=== PATIENT | female | born 1990 | race Caucasian/White ===

== ENCOUNTER 2022-09-19 09:26 | Emergency (ER) | payer BC ==
[2022-09-19 11:24] LABS: CARBON DIOXIDE,CO2 26.3 mmol/L (21.0-32.0)
== END 2022-09-19 13:51 | disposition home or self-care (01) ==
LOC: MW.ED 09:26
DX: O20.0 Threatened abortion (principal); Z86.16 Personal history of COVID-19; Z3A.01 Less than 8 weeks gestation of pregnancy
CPT/HCPCS: 36415; 76817; 76817-26; 80053; 81001; 84702; 85025; 86900; 86901; 99284

== ENCOUNTER 2023-10-01 14:28 | Emergency (ER) | payer BC ==
[2023-10-01 14:54] LABS: BASOPHILS ABSOLUTE AUTO 0.04 K/uL (0.00-0.20); BASOPHILS PERCENT AUTO 0.4 % (0.0-1.0); EOSINOPHILS ABSOLUTE AUTO 0.03 K/uL (0.00-0.45); EOSINOPHILS PERCENT AUTO 0.3 % (0.0-6.0); HEMATOCRIT 40.3 % (37.0-47.0); HEMOGLOBIN 14.1 g/dL (12.0-16.0); IMMATURE GRAN ABSOLUTE AUTO 0.02 K/uL (0.00-0.05); IMMATURE GRAN PERCENT AUTO 0.2 % (0.0-0.4); LYMPHOCYTES ABSOLUTE AUTO 2.16 K/uL (1.00-4.80); LYMPHOCYTES PERCENT AUTO 21.8 % (24.0-44.0); MEAN CORPUSCULAR HEMOGLOBIN 30.7 pg (28.0-32.0); MEAN CORPUSCULAR VOLUME 87.8 fL (83.0-99.0); MEAN PLATELET VOLUME 10.7 fL (9.4-12.3); MONOCYTES ABSOLUTE AUTO 0.72 K/uL (0.00-0.80); MONOCYTES PERCENT AUTO 7.3 % (0.0-8.0); NEUTROPHILS ABSOLUTE AUTO 6.93 K/uL (1.80-7.70); PLATELET COUNT,PLT 282 K/uL (150-400); RED BLOOD CELL COUNT 4.59 M/uL (4.10-5.30)
[2023-10-01 15:08] LABS: APPEARANCE,URINE CLEAR; BILIRUBIN,URINE NEGATIVE (NEGATIVE); COLOR,URINE YELLOW; GLUCOSE,URINE NEGATIVE (NEGATIVE); KETONES,URINE NEGATIVE (NEGATIVE); LEUKOCYTE ESTERASE,URINE NEGATIVE (NEGATIVE); NITRITE,URINE NEGATIVE (NEGATIVE); OCCULT BLOOD,URINE SMALL (NEGATIVE); PROTEIN,URINE NEGATIVE (NEGATIVE); UROBILINOGEN,URINE 0.2 EU/dL (<2.0)
[2023-10-01 15:24] LABS: BACTERIA,URINE FEW (NEGATIVE); EPITHELIAL CELLS,URINE FEW (NONE-FEW); MUCUS,URINE RARE (NONE-MOD); RBC,URINE 0-1 (0-2/HPF); WBC,URINE 0-2 (0-5/HPF)
[2023-10-01 15:51] LABS: A/G RATIO 0.8 (0.9-1.6); ALBUMIN 3.6 g/dL (3.4-5.0); BILIRUBIN TOTAL 0.2 mg/dL (0.2-1.0); CALCIUM 10.1 mg/dL (8.5-10.1); CARBON DIOXIDE,CO2 22.7 mmol/L (21.0-32.0); CREATININE 0.7 mg/dL (0.6-1.0); EST CRCL DRUG DOSING (CG) 94.56 mL/min; POTASSIUM,K 3.9 mmol/L (3.5-5.1)
== END 2023-10-01 17:01 | disposition home or self-care (01) ==
LOC: MW.ED 14:28
DX: O20.0 Threatened abortion (principal); Z86.16 Personal history of COVID-19; Z3A.08 8 weeks gestation of pregnancy
CPT/HCPCS: 36415; 76801; 76801-26; 80053; 81001; 84702; 85025; 99283; 99284

== ENCOUNTER 2024-04-12 09:53 | Inpatient (IN) | payer BC ==
[2024-04-12 10:27] LABS: APPEARANCE,URINE CLEAR; BILIRUBIN,URINE NEGATIVE (NEGATIVE); COLOR,URINE YELLOW; GLUCOSE,URINE NEGATIVE (NEGATIVE); KETONES,URINE NEGATIVE (NEGATIVE); LEUKOCYTE ESTERASE,URINE NEGATIVE (NEGATIVE); NITRITE,URINE NEGATIVE (NEGATIVE); OCCULT BLOOD,URINE TRACE-INTACT (NEGATIVE); PROTEIN,URINE NEGATIVE (NEGATIVE); UROBILINOGEN,URINE 0.2 EU/dL (<2.0)
[2024-04-12] MEDS ORDERED: Misoprostol 200 MCG Tab PO PRN (11:26)
[2024-04-12] MEDS ORDERED: Methylergonovine 0.2 MG/1 ML Amp IM PRN (11:26)
[2024-04-12] MEDS ORDERED: Calcium Gluconate 10% 1 GM/10 ML SDV IV PRN (11:26)
[2024-04-12] MEDS ORDERED: Tranexamic Acid IN NACL,ISO-OS 1,000 MG in Premix Bag 1 BAG IV PRN (11:26)
[2024-04-12] MEDS ORDERED: Lidocaine 1% 50 ML MDV INJECT PRN (11:26)
[2024-04-12] MEDS ORDERED: Sodium Chloride 0.9% 10 ML Syringe FLUSH PRN (11:26)
[2024-04-12] MEDS ORDERED: Butorphanol 2 MG/ML SDV IVPUSH PRN (11:26)
[2024-04-12] MEDS ORDERED: Sodium Chloride 0.9% 2.5 ML Syringe FLUSH PRN (11:26)
[2024-04-12] MEDS ORDERED: Water For Irrigation,Sterile 1,000 ML Container IRR PRN (11:26)
[2024-04-12] MEDS ORDERED: Carboprost Tromethamine 250 MCG/1 mL Vial IM PRN (11:26)
[2024-04-12] MEDS ORDERED: Ondansetron 4 MG/2 ML SDV IVPUSH PRN (11:26)
[2024-04-12] MEDS ORDERED: Sodium Chloride 0.9% 20 ML SDV IV PRN (11:26)
[2024-04-12] MEDS ORDERED: Terbutaline 1 MG/ML SDV SUBCUT PRN (11:26)
[2024-04-12] MEDS ORDERED: Oxytocin/0.9 % Sodium Chloride 30 UNIT/500 ML BAG IV SCH (11:30)
[2024-04-12 11:36] LABS: HEMATOCRIT 42.4 % (37.0-47.0); HEMOGLOBIN 14.6 g/dL (12.0-16.0); MEAN CORPUSCULAR HEMOGLOBIN 30.7 pg (28.0-32.0); MEAN CORPUSCULAR HGB CONC 34.4 g/dL (32.0-36.0); MEAN CORPUSCULAR VOLUME 89.1 fL (83.0-99.0); MEAN PLATELET VOLUME 11.1 fL (9.4-12.3); PLATELET COUNT,PLT 248 K/uL (150-400); RED BLOOD CELL COUNT 4.76 M/uL (4.10-5.30); WHITE BLOOD CELL COUNT,WBC 8.86 K/uL (3.9-11.3)
[2024-04-12] MEDS: NIFEdipine 30 MG Tab.ER PO ONE (11:48)
[2024-04-12 11:59] LABS: A/G RATIO 0.5 (0.9-1.6); ALBUMIN 2.3 g/dL (3.4-5.0); BILIRUBIN TOTAL 0.2 mg/dL (0.2-1.0); CALCIUM 10.2 mg/dL (8.5-10.1); CARBON DIOXIDE,CO2 20.1 mmol/L (21.0-32.0); CREATININE 0.6 mg/dL (0.6-1.0); EST CRCL DRUG DOSING (CG) 110.32 mL/min; POTASSIUM,K 3.8 mmol/L (3.5-5.1); URIC ACID 7.7 mg/dL (2.6-7.2)
[2024-04-12] MEDS: Lactated Ringers 1,000 ML IV SCH (12:31)
[2024-04-12] MEDS: Magnesium Sulfate/Water 4 GM in Premix Bag 1 BAG IV ONE (12:34)
[2024-04-12] MEDS: Magnesium Sulfate/Water 20 GM/500 ML BAG IV SCH (13:03)
[2024-04-12] MEDS: Misoprostol 25 MCG (1/4 of 100 MCG) Tab VAG PRN (13:24)
[2024-04-13] MEDS: Oxytocin/0.9 % Sodium Chloride 30 UNIT/500 ML BAG IV SCH (11:24)
[2024-04-13] MEDS: Labetalol 100 MG/20 ML MDV IVPUSH PRN (13:32)
[2024-04-13] MEDS ORDERED: Phenylephrine HCl In 0.9% NaCl 1 MG/10 ML Syringe ONE ×3 (17:11→18:33)
[2024-04-13] MEDS ORDERED: Bupivacaine 0.5% 10 ML SDV ONE ×2 (17:11→18:39)
[2024-04-13] MEDS ORDERED: Ropivacaine HCl/PF 200 ML ONE (17:11)
[2024-04-13] MEDS ORDERED: ceFAZolin 1 GM Vial ONE (17:43)
[2024-04-13] MEDS ORDERED: Bupivacaine 0.25% 30 ML SDV ONE (17:43)
[2024-04-13] MEDS ORDERED: Morphine PF 10 MG/10 ML SDV ONE (17:43)
[2024-04-13] MEDS ORDERED: Oxytocin 10 Units/1 ML SDV ONE (17:43)
[2024-04-13] MEDS ORDERED: EPINEPHrine 1 MG/1 ML Amp ONE (17:43)
[2024-04-13] MEDS ORDERED: Ondansetron 4 MG/2 ML SDV ONE (17:43)
[2024-04-13] MEDS ORDERED: fentaNYL 100 MCG/2 ML SDV ONE (17:43)
[2024-04-13] MEDS ORDERED: Ketorolac 30 MG/ML SDV ONE (17:43)
[2024-04-13] MEDS ORDERED: Ropivacaine 0.5% 5 MG/ML 30 ML SDV ONE (17:43)
[2024-04-13] MEDS ORDERED: ePHEDrine 50 MG/ML SDV ONE (17:51)
[2024-04-13] MEDS ORDERED: Propofol 200 MG/20 ML SDV ONE (17:52)
[2024-04-13] MEDS ORDERED: Azithromycin 500 MG Vial ONE (17:59)
[2024-04-13] MEDS ORDERED: Tranexamic Acid 1,000 MG in Sodium Chloride 0.9% 100 ML IV PRN (19:05)
[2024-04-13] MEDS ORDERED: Sodium Chloride 0.9% 2.5 ML Syringe FLUSH PRN (19:05)
[2024-04-13] MEDS ORDERED: oxyCODONE 5 MG Tab PO PRN (19:05)
[2024-04-13] MEDS ORDERED: Oxytocin/0.9 % Sodium Chloride 30 UNIT/500 ML BAG IV SCH (19:15)
[2024-04-13] MEDS ORDERED: Phenylephrine HCl In 0.9% NaCl 1 MG/10 ML Syringe IVPUSH PRN ×2 (19:21→19:23)
[2024-04-13] MEDS ORDERED: ePHEDrine 50 MG/ML SDV IVPUSH PRN ×6 (19:21→19:23)
[2024-04-13] MEDS ORDERED: HYDROmorphone 1 MG/ML Syringe IVPUSH PRN (19:23)
[2024-04-13] MEDS ORDERED: Naloxone 0.4 MG/ML SDV IVPUSH PRN (19:23)
[2024-04-13] MEDS ORDERED: Acetaminophen/oxyCODONE 325-5 MG Tab PO PRN (19:23)
[2024-04-13] MEDS ORDERED: droPERidol 5 MG/2 ML SDV IVPUSH PRN (19:23)
[2024-04-13] MEDS ORDERED: Albuterol 0.083% 2.5 MG/3 ML Neb Soln NEB PRN (19:23)
[2024-04-13] MEDS ORDERED: Metoclopramide 10 MG/2 ML SDV IVPUSH PRN (19:23)
[2024-04-13] MEDS ORDERED: Morphine 2 MG/ML SYRINGE IVPUSH PRN (19:23)
[2024-04-13] MEDS ORDERED: fentaNYL 100 MCG/2 ML SDV IVPUSH PRN (19:23)
[2024-04-13] MEDS ORDERED: diphenhydrAMINE 50 MG/ML SDV IVPUSH PRN (19:23)
[2024-04-13] MEDS ORDERED: Ondansetron 4 MG/2 ML SDV IVPUSH PRN ×2 (19:23)
[2024-04-13] MEDS ORDERED: fentaNYL 50 MCG/ML SDV IVPUSH PRN (19:23)
[2024-04-13] MEDS ORDERED: Ropivacaine HCl/PF 400 MG in Premix Bag 1 BAG EPIDUR SCH ×3 (19:30)
[2024-04-13] MEDS: Docusate Sodium 100 MG Cap PO SCH (22:29)
[2024-04-14] MEDS: Ondansetron 4 MG/2 ML SDV IVPUSH PRN (00:04)
[2024-04-14] MEDS: Ketorolac 30 MG/ML SDV IVPUSH SCH (00:07)
[2024-04-14] MEDS: Acetaminophen 1,000 MG in Premix Bag 1 BAG IV SCH (01:17)
[2024-04-14] MEDS: Metoclopramide 10 MG/2 ML SDV IVPUSH PRN (02:14)
[2024-04-14 06:32] LABS: BASOPHILS ABSOLUTE AUTO 0.01 K/uL (0.00-0.20); BASOPHILS PERCENT AUTO 0.1 % (0.0-1.0); HEMATOCRIT 38.9 % (37.0-47.0); IMMATURE GRAN ABSOLUTE AUTO 0.03 K/uL (0.00-0.05); IMMATURE GRAN PERCENT AUTO 0.3 % (0.0-0.4); LYMPHOCYTES ABSOLUTE AUTO 1.36 K/uL (1.00-4.80); LYMPHOCYTES PERCENT AUTO 11.9 % (24.0-44.0); MEAN CORPUSCULAR HEMOGLOBIN 30.2 pg (28.0-32.0); MEAN CORPUSCULAR HGB CONC 33.4 g/dL (32.0-36.0); MEAN CORPUSCULAR VOLUME 90.3 fL (83.0-99.0); MEAN PLATELET VOLUME 11.6 fL (9.4-12.3); MONOCYTES ABSOLUTE AUTO 0.57 K/uL (0.00-0.80); NEUTROPHILS ABSOLUTE AUTO 9.49 K/uL (1.80-7.70); NEUTROPHILS PERCENT AUTO 82.7 % (41.0-71.0); PLATELET COUNT,PLT 247 K/uL (150-400); RED BLOOD CELL COUNT 4.31 M/uL (4.10-5.30); WHITE BLOOD CELL COUNT,WBC 11.46 K/uL (3.9-11.3)
[2024-04-14] MEDS: Promethazine 25 MG/ML SDV IM PRN (09:04)
[2024-04-14] MEDS: Lanolin 100% Cream 7 GM Tube TOP PRN (10:32)
[2024-04-14] MEDS: Sodium Chloride 0.9% 10 ML Syringe FLUSH PRN (12:28)
[2024-04-14] MEDS: Acetaminophen 500 MG Tab PO SCH (21:04)
[2024-04-15] MEDS: Ibuprofen 800 MG Tab PO PRN (10:12)
[2024-04-15] MEDS ORDERED: Acetaminophen 500 MG Tab PO PRN (20:00)
== END 2024-04-15 18:20 | disposition home or self-care (01) | DRG 540 ==
LOC: MW.OBCHECK 09:53 → MW.OB 09:55 → MW.OBCHECK 11:26 → OBSVTOIN 04-13 17:56 → MW.OB 04-13 23:58
PROVIDERS: ADMIT Obstetrics & Gynecology; ATTEND Obstetrics & Gynecology
PROC: 10D00Z1 Extraction of Products of Conception, Low, Open Approach (ICD-10-PCS; principal; 2024-04-13 17:46)
DX: O13.4 Gestational [pregnancy-induced] hypertension without significant proteinuria, complicating childbirth (principal); O76 Abnormality in fetal heart rate and rhythm complicating labor and delivery; Z37.0 Single live birth; Z90.89 Acquired absence of other organs; Z3A.37 37 weeks gestation of pregnancy
CPT/HCPCS: 36415; 51702; 59025; 74018; 74018-26; 80053; 81003; 83735; 84550; 85025; 85027; 86592; 86850; 86900; 86901; A9270-GY; J0131; J0171; J0456; J0665; J0690; J1100; J1885; J1921; J2274; J2371; J2405; J2550; J2590; J2704; J2765; J2795; J3010; J3475; J3490; J7120

== ENCOUNTER 2025-09-12 10:35 | Emergency (ER) | payer BC | END 2025-09-12 12:19 | disposition home or self-care (01) | LOC: MW.ED 10:35 | DX: O98.511 Other viral diseases complicating pregnancy, first trimester (principal); B08.4 Enteroviral vesicular stomatitis with exanthem; Z3A.11 11 weeks gestation of pregnancy; Z75.3 Unavailability and inaccessibility of health-care facilities; Z79.82 Long term (current) use of aspirin; Z79.899 Other long term (current) drug therapy | CPT/HCPCS: 76817; 76817-26; 99283; 99284 ==

== ENCOUNTER 2025-10-19 18:00 | Emergency (ER) | payer BC ==
[2025-10-19 18:52] LABS: BASOPHILS ABSOLUTE AUTO 0.03 K/uL (0.00-0.20); BASOPHILS PERCENT AUTO 0.4 % (0.0-1.0); EOSINOPHILS ABSOLUTE AUTO 0.04 K/uL (0.00-0.45); EOSINOPHILS PERCENT AUTO 0.5 % (0.0-6.0); IMMATURE GRAN ABSOLUTE AUTO 0.02 K/uL (0.00-0.05); IMMATURE GRAN PERCENT AUTO 0.2 % (0.0-0.4); LYMPHOCYTES ABSOLUTE AUTO 1.94 K/uL (1.00-4.80); LYMPHOCYTES PERCENT AUTO 23.1 % (24.0-44.0); MEAN PLATELET VOLUME 10.4 fL (9.4-12.3); MONOCYTES ABSOLUTE AUTO 0.54 K/uL (0.00-0.80); MONOCYTES PERCENT AUTO 6.4 % (0.0-8.0); NEUTROPHILS ABSOLUTE AUTO 5.82 K/uL (1.80-7.70); NEUTROPHILS PERCENT AUTO 69.4 % (41.0-71.0); NRBC ABSOLUTE 0.00 K/uL (0.00-0.02); NRBC PERCENT 0.0 /100WBC (0.0-0.2); PLATELET COUNT,PLT 263 K/uL (150-400); RED BLOOD CELL COUNT 4.57 M/uL (4.10-5.30); WHITE BLOOD CELL COUNT,WBC 8.39 K/uL (3.9-11.3)
[2025-10-19 19:13] LABS: INR 0.97 (0.86-1.11)
[2025-10-19 19:14] LABS: A/G RATIO 0.8 (0.9-1.6); ALANINE AMINOTRANSFERASE,ALT 15 IU/L (14-63); ASPARTATE AMNIOTRANSFERASE,AST 14 IU/L (15-37); BILIRUBIN TOTAL 0.2 mg/dL (0.2-1.0); BLOOD UREA NITROGEN,BUN 8 mg/dL (7.0-18.0); CARBON DIOXIDE,CO2 27.0 mmol/L (21.0-32.0); CHLORIDE,CL 103 mmol/L (98-107); CREATININE 0.6 mg/dL (0.6-1.0); GLUCOSE RANDOM 111 mg/dL (74-106); POTASSIUM,K 3.7 mmol/L (3.5-5.1); PROTEIN TOTAL,TP 7.6 g/dL (6.4-8.2); SODIUM,NA 139 mmol/L (136-145)
[2025-10-19 19:15] LABS: ESTIMATED GFR 120 mL/min (>60)
== END 2025-10-19 20:42 | disposition home or self-care (01) ==
LOC: MW.ED 18:00
DX: O36.4XX0 Maternal care for intrauterine death, not applicable or unspecified (principal); Z79.82 Long term (current) use of aspirin; Z79.899 Other long term (current) drug therapy; Z3A.16 16 weeks gestation of pregnancy
CPT/HCPCS: 36415; 76815; 76815-26; 80053; 84702; 85025; 85610; 99283; 99284

== ENCOUNTER 2025-10-20 19:33 | Day surgery (SDC) | payer BC ==
[2025-10-20] MEDS: Ondansetron 4 MG/2 ML SDV IVPUSH ONE (19:48)
[2025-10-20 19:52] LABS: BASOPHILS ABSOLUTE AUTO 0.03 K/uL (0.00-0.20); BASOPHILS PERCENT AUTO 0.3 % (0.0-1.0); EOSINOPHILS ABSOLUTE AUTO 0.03 K/uL (0.00-0.45); EOSINOPHILS PERCENT AUTO 0.3 % (0.0-6.0); IMMATURE GRAN ABSOLUTE AUTO 0.01 K/uL (0.00-0.05); IMMATURE GRAN PERCENT AUTO 0.1 % (0.0-0.4); LYMPHOCYTES ABSOLUTE AUTO 2.26 K/uL (1.00-4.80); LYMPHOCYTES PERCENT AUTO 20.3 % (24.0-44.0); MEAN PLATELET VOLUME 10.4 fL (9.4-12.3); MONOCYTES ABSOLUTE AUTO 0.65 K/uL (0.00-0.80); MONOCYTES PERCENT AUTO 5.8 % (0.0-8.0); NEUTROPHILS ABSOLUTE AUTO 8.16 K/uL (1.80-7.70); NEUTROPHILS PERCENT AUTO 73.2 % (41.0-71.0); NRBC ABSOLUTE 0.00 K/uL (0.00-0.02); NRBC PERCENT 0.0 /100WBC (0.0-0.2); PLATELET COUNT,PLT 276 K/uL (150-400); RED BLOOD CELL COUNT 4.66 M/uL (4.10-5.30); WHITE BLOOD CELL COUNT,WBC 11.14 K/uL (3.9-11.3)
[2025-10-20 20:03] LABS: INR 0.97 (0.86-1.11)
[2025-10-20 20:07] LABS: BLOOD UREA NITROGEN,BUN 11 mg/dL (7.0-18.0); CARBON DIOXIDE,CO2 24.7 mmol/L (21.0-32.0); CHLORIDE,CL 105 mmol/L (98-107); CREATININE 0.7 mg/dL (0.6-1.0); GLUCOSE RANDOM 116 mg/dL (74-106); POTASSIUM,K 4.0 mmol/L (3.5-5.1); SODIUM,NA 139 mmol/L (136-145)
[2025-10-20 20:10] LABS: ESTIMATED GFR 116 mL/min (>60)
[2025-10-20] MEDS ORDERED: Propofol 200 MG/20 ML SDV ONE (20:24)
[2025-10-20] MEDS ORDERED: fentaNYL 100 MCG/2 ML SDV ONE (20:25)
[2025-10-20] MEDS ORDERED: dexmedeTOMIDine HCl 200 MCG/2 ML SDV ONE (20:26)
[2025-10-20] MEDS ORDERED: Magnesium Sulfate (4.06 MEQ/ML) 5 GM/10 ML SDV ONE (21:02)
[2025-10-20] MEDS ORDERED: Dexamethasone 4 MG/ML 5 ML MDV ONE (21:02)
[2025-10-20] MEDS ORDERED: Ondansetron 4 MG/2 ML SDV ONE (21:02)
[2025-10-20] MEDS ORDERED: Ketorolac 30 MG/ML SDV ONE (21:08)
[2025-10-20] MEDS ORDERED: Oxytocin 10 Units/1 ML SDV ONE (21:18)
== END 2025-10-20 23:35 | disposition home or self-care (01) ==
LOC: MW.ED 19:33 → MW.SDS 20:08 → MW.OB 20:08 → MW.SDS 23:35
PROVIDERS: ATTEND Obstetrics & Gynecology Gynecology
DX: O02.1 Missed abortion (principal); Z79.82 Long term (current) use of aspirin; Z79.899 Other long term (current) drug therapy
CPT/HCPCS: 36415; 59821; 80048; 85025; 85610; 86850; 86900; 86901; 96374; 96375; 96376; 99284; J0690; J1100; J1885; J2270; J2405; J2590; J2704; J3010; J3475; 01965; 59840; 99285; J3490